=== PATIENT | female | born 1985 | race Hispanic/Latino ===

== ENCOUNTER 2016-08-07 14:01 | Inpatient (IN) | payer OTHER ==
[2016-08-07] VITALS (16 sets, daily range): BP systolic 101–143; BP diastolic 50–614
[~2016-08-07] VITALS: Ht 147.3 cm; Wt 69.4 kg
[~2016-08-07 14:01] MED LIST: FERR SULFATE325 MG PO; NO MEDS; PRENATA3 PO
--- NOTE | 2016-08-07 14:24 | NUR ---
ROMEO PATCH MONITOR APPLIED AND EXPLAINED TO PT.
[2016-08-07 14:38] LABS: URINE BILIRUBIN - DIPSTICK NEGATIVE (NEGATIVE); URINE BLOOD DIPSTICK NEGATIVE (NEGATIVE); URINE CLARITY CLEAR; URINE COLOR YELLOW; URINE GLUCOSE - DIPSTICK NEGATIVE (NEGATIVE); URINE KETONE >=80 mg/dL (NEGATIVE); URINE LEUK ESTERASE NEGATIVE (NEGATIVE); URINE NITRITE - DIPSTICK NEGATIVE (Negative); URINE PROTEIN - DIPSTICK NEGATIVE (NEG-TRACE); URINE UROBILINOGEN - DIPSTICK 0.2 E.U./dL (0.2)
[2016-08-07 14:42] LABS: BARBITURATES NEGATIVE (NEGATIVE); COCAINE NEGATIVE (NEGATIVE); METHADONE NEGATIVE (NEGATIVE); OXCYCODONE NEGATIVE (NEGATIVE); TETRAHYDROCANNABIONOL NEGATIVE (NEGATIVE); TRICYLIC ANTIDEPRESSANTS NEGATIVE (NEGATIVE)
--- NOTE | 2016-08-07 15:19 | NUR ---
PT WALKING IN PARDO WAY WITH NOVII TELEMETRY MONITORING. CONTRACTIONS ARE MILD AND MOST LESS THAN 60 SEC. NO LEAKAGE OF FLUID OR VAGINAL D/C. PO FLUIDS ENCOURAGED
--- NOTE | 2016-08-07 15:58 | NUR ---
PT AMBULATING WITHOUT DIFFICULTY ON NOVII PATCH MONITORING. SOME CTX DO NOT PALPATE AND ARE NOT FELT BY PT. MONITOR APPARENTLY EXTRA SENSITIVE TO UTERINE ACTIVITY, DR. ZAVALA AWARE OF PT STATUS AND URINE RESULTS. PO FLUIDS ENCOURAGED.
--- NOTE | 2016-08-07 16:26 | NUR ---
DR. ZAVALA ON UNIT AND REPORT GIVEN
[2016-08-07 17:23] LABS: HEMATOCRIT 35.6 % (37.0-47.0); HEMOGLOBIN 12.2 g/dl (12.0-16.0); IMMATURE GRANULOCYTES 0.4 % (0.0-1.0); MEAN CELL VOLUME 89.9 fL CALC (80.0-100.0); MEAN CORPUSCULAR HGB 30.8 pG CALC (26.0-32.0); MEAN CORPUSCULAR HGB CONC 34.3 g/L CALC (32.0-36.0); NEUT# 5.04 thou/uL (2.00-7.15); RED BLOOD COUNT 3.96 mill/uL (4.20-5.60); RED CELL DISTRI WIDTH 13.7 % (11.5-15.5)
--- NOTE | 2016-08-07 17:31 | NUR ---
PT ADMITTED TO OBSERVATION IN EARLY LABOR, GBS POSITIVE. KATHY GOMES INTERPRETED ON INITIAL ASSESSMENT. PT EXPRESSING SHE UNDERSTANDS RN SIMPLE BAHRAINI AT THIS TIME. CTX ARE STRONGER. MEMBRANES REMAIN INTACT
--- NOTE | 2016-08-07 17:34 | NUR ---
PT AMBULATORY AND BY HERSELF, REMAINS ON THE WIRELESS MONITOR. NO FAMILY OR SUPPORT PERSONS PRESENT, OFFERED TELEPHONE, DECLINES
[2016-08-07 17:42] LABS: ALBUMIN 3.8 g/dL (3.2-5.0); ALKALINE PHOSPHATASE 196 u/l (38-126); ANION GAP 16 (6-22 (CALC)); BILIRUBIN, TOTAL 0.4 mg/dL (0.0-1.4); BUN 6 mg/dL (7-17); BUN/CREATININE RATIO 15 (12-20 (CALC)); CALCIUM 9.2 mg/dL (8.4-10.2); CARBON DIOXIDE 20 mmol/l (22-30); CHLORIDE 105 mmol/l (95-108); CREATININE 0.4 mg/dL (0.5-1.0); GFR > 60 ML/MIN (>=60 (CALC)); GFR FOR AFR.AMER. > 60 ML/MIN (>=60 (CALC)); GLUCOSE 91 mg/dL (65-105); SGOT/AST 32 u/l (14-36); SGPT/ALT 26 u/l (9-52); SODIUM 137 mmol/l (137-146); TOTAL PROTEIN 6.9 g/dL (6.3-8.2)
--- NOTE | 2016-08-07 17:45 | NUR ---
ACTIVE LABOR SIGNS. PT ADMITTED. NO FAMILY SUPPORT. COMFORT MEASURES DISCUSSED. PT CONTINUES TO AMBULATE WITH WIRELESS MONITORING.
--- NOTE | 2016-08-07 18:02 | NUR ---
IV SITE HEALTHY. ANTIBIOTIC INFUSING AND BEING TOLERATED WELL. PT OOB IN CHAIR ON WIRELESS MONITORING
--- NOTE | 2016-08-07 19:00 | NUR ---
Report received from THELMA Millan. This RN instructed on new wireless monitor attached to patient. pt presently sitting in chair, breathing well through contractions. Pt up to bathroom then moved to room 1 with new monitor.
--- NOTE | 2016-08-07 19:30 | NUR ---
pt desires pain medication. reviewed plan with , requested SVE prior to medication. SVE with BHARGAVI. RN call to who had gone to the emergency room, left message on cell phone to return to L&D. RN relayed to pt unable to give pain medication at this time, baby will be coming soon.
--- NOTE | 2016-08-07 19:52 | NUR ---
Dr. Anaya present in delivery room, preparing for delivery
--- NOTE | 2016-08-07 20:04 | NUR ---
membranes ruptured AT 6 clear fluid pt began pushing at 1956. Spontaneous vaginal delivery at 2003, viable female infant active alert and crying. Placenta delivered intact spontaneously at 2006.
--- NOTE | 2016-08-07 21:20 | NUR ---
PT up to bathroom, assisted with godwin care, ambulated to post room 205 with steady gait. States pain 2/10 at this time, denies need for pain medication. RN provided snack of [employer] sandwich, pudding, crackers and juice.
--- NOTE | 2016-08-07 23:30 | NUR ---
VS stable, Fundus firm 1/U, pain 2/10. IV removed with catheter intact after LR with pitocin infused. Pt able to complete own godwin care, lochia moderate rubra.
--- NOTE | 2016-08-08 00:30 | NUR ---
PT STATES PAIN 2/10 and does not need Motrin at this time.
--- NOTE | 2016-08-08 01:11 | NUR ---
pt up to bathroom on her own, just got done feeding baby. RN turned off lights, encouraged her to sleep until next time baby needs to eat; pt agreed.
--- NOTE | 2016-08-08 03:23 | NUR ---
Pt up attempting to breastfeed baby, pt states "she has no milk" in [place]. Baby is quiet and sleeping, RN provided bottle, but baby still sleeping and uninterested in eating. RN left bottle and pt states understands baby is able to eat anytime baby wants to eat as it has been 3 hours since she ate last. pt back to bed.
--- NOTE | 2016-08-08 04:55 | NUR ---
pt resting in bed with eyes closed, no distress while baby is getting bath by nursery nurse.
[2016-08-08 05:26] LABS: HEMATOCRIT 34.8 % (37.0-47.0); HEMOGLOBIN 11.9 g/dl (12.0-16.0); IMMATURE GRANULOCYTES 0.6 % (0.0-1.0); MEAN CELL VOLUME 90.2 fL CALC (80.0-100.0); MEAN CORPUSCULAR HGB 30.8 pG CALC (26.0-32.0); MEAN CORPUSCULAR HGB CONC 34.2 g/L CALC (32.0-36.0); RED BLOOD COUNT 3.86 mill/uL (4.20-5.60); RED CELL DISTRI WIDTH 13.6 % (11.5-15.5)
[2016-08-08 07:00] VITALS: BP 125/80
--- NOTE | 2016-08-08 07:00 | NUR ---
PATIENT LAYING IN BED RESTING; PATIENT DENIES ANY PAIN OR NEEDS AT THIS TIME.
--- NOTE | 2016-08-08 09:00 | NUR ---
DR. ZAVALA IN TO SEE PATIENT; NO NEW ORDERS RECEIVED AT THIS TIME.
--- NOTE | 2016-08-08 11:26 | NUR ---
PATIENT READING OVER HER DISCHARGE PACKET. PATIENT DENIES ANY QUESTIONS OR NEEDS AT THIS TIME.
--- NOTE | 2016-08-08 18:31 | NUR ---
PATIENT CHANGING 'S DIAPER. PATIENT DENIES ANY PAIN AT THIS TIME. CINDY-PADS GIVEN TO PATIENT REQUESTED AND PATIENT DENIES ANY FURTHER NEEDS.
[2016-08-08 19:20] VITALS: BP 97/53
--- NOTE | 2016-08-09 06:40 | NUR ---
PT JUST OUT OF SHOWER AND BROUGHT BACK AT 0630. DENIES NEEDS AT THIS TIME. CALL LIGHT IN REACH, BED IN LOW POSITION. REPORT PREPARED FOR NEXT SHIFT.
--- NOTE | 2016-08-09 07:00 | NUR ---
REPORT FROM Lucius TAYLOR RN. IS WITH MOTHER SLEEPING IN OPEN CRIB, RESP EASY
--- NOTE | 2016-08-09 07:45 | NUR ---
PATIENT UP TO RESTROOM. ASSESSMENT DONE. ADMITS TO MILD LOWER ABDOMINAL CRAMPING BUT DECLINES ANALGESIC AT THIS TIME. STATES SHE HAD A BM THIS MORNING. NO OTHER CONCERNS AT THIS TIME. BREAKFAST OFFERED.
[2016-08-09 07:55] VITALS: BP 109/69
[2016-08-09] MEDS ORDERED: IBUPROFEN600 MG PO (09:36)
--- NOTE | 2016-08-09 11:40 | NUR ---
Discharge instructions given. Patient verbalizes understanding of same. Discharged in stable condition via Wheelchair to Home with family. All belongings sent with pt. has prescription for motrin. instructed to call for follow up appt.
== END 2016-08-09 11:40 | disposition home or self-care (01) | DRG 775 ==
LOC: OB 14:01 → OBOP 14:01 → OB 17:45
PROC: 10E0XZZ Delivery of Products of Conception, External Approach (ICD-10-PCS; principal; 2016-08-07)
PROC: 10907ZC Drainage of Amniotic Fluid, Therapeutic from Products of Conception, Via Natural or Artificial Opening (ICD-10-PCS; 2016-08-07)
DX: O99.824 Streptococcus B carrier state complicating childbirth (principal); D50.9 Iron deficiency anemia, unspecified; O99.02 Anemia complicating childbirth; Z3A.40 40 weeks gestation of pregnancy; Z37.0 Single live birth
CPT/HCPCS: J2540